=== PATIENT | female | born 1935 | race Caucasian/White ===

== ENCOUNTER 2018-07-23 15:10 | Emergency (ER) | payer MEDICARE, BC ==
[2018-07-23] MEDS ORDERED: Nitroglycerin 0.4 MG Tab.SL SL ONE (15:20)
--- NOTE | 2018-07-23 15:25 | EDM.PDOC ---
ED HPI GENERAL MEDICAL PROBLEM - General Stated Complaint: CHEST PAIN Time Seen by Provider: 07/23/18 15:10 Source of Information: Reports: Patient History Limitations: Reports: No Limitations - History of Present Illness INITIAL COMMENTS - FREE TEXT/NARRATIVE: Patient presents with tightness across lower to mid-sternal area that started about 45 minutes ago. She took 3 nitro without much help but doesn't think they stayed under her tongue. She says the pain was as high as 9 but is now about 4. She has angina occasionally, which is why she carries her nitro, but doesn't think she's ever had it this bad before. She denies pain in neck, arm, jaw, shoulders or arms. Middle Chest Pain Score (Numeric/FACES): 4 - Related Data Allergies Allergy/AdvReac Type Severity Reaction Status Date / Time No Known Allergies Allergy Verified 07/23/18 15:32 Home Meds: Home Meds Ascorbic Acid [Vitamin C] 500 mg PO DAILY 06/20/13 [History] Aspirin 325 mg PO DAILY 06/20/13 [History] Calcium Carbonate/Vitamin D3 [Calcium 500 + Vit D Caplet] 1 tab PO DAILY [History] Multivitamins [Tab-A-Parminder] 1 each PO DAILY 06/20/13 [History] Polyethylene Glycol 3350 [MiraLAX] 17 gm PO DAILY 06/20/13 [History] atorvaSTATin [Lipitor] 40 mg PO BEDTIME 06/20/13 [History] levETIRAcetam [Levetiracetam] 750 mg PO BID 06/20/13 [History] Furosemide 20 mg PO ASDIRECTED 09/19/15 [History] Isosorbide Mononitrate [Imdur] 30 mg PO DAILY #60 tab.er 09/20/15 [Rx] Nitroglycerin 0.4 mg SL ASDIRECTED PRN #1 bottle 09/20/15 [Rx] Lysine HCl [l-Lysine] 500 mg PO BID PRN 06/18/16 [History] Potassium Chloride 10 meq PO ASDIRECTED 06/18/16 [History] Ascorbic Acid [Vitamin C] 500 mg PO DAILY 07/23/18 [History] Past Medical History HEENT History: Reports: Cataract, Impaired Vision Cardiovascular History: Reports: SOB on Exertion Respiratory History: Reports: Other (See Below) Other Respiratory History: CPAP use Gastrointestinal History: Reports: Chronic Constipation 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 skin cancer removed from R cheek recently - Infectious Disease History Infectious Disease History: Reports: Chicken Pox - Past Surgical History HEENT Surgical History: Reports: Cataract Surgery Female Surgical History: Reports: Section Endocrine Surgical History: Reports: None Musculoskeletal Surgical History: Reports: Hip Replacement, Knee Replacement Social & Family History - Family History Family Medical History: Unobtainable HEENT: Reports: None Cardiac: Reports: Bypass, CAD Other Cardiac Family History: father of stroke, sister with heart disease, sister with hyperlipidemia Respiratory: Reports: None GI: Reports: None : Reports: None OBGYN: Reports: None Musculoskeletal: Reports: None Neurological: Reports: None Psychiatric: Reports: None Endocrine/Metabolic: Reports: None Hematologic: Reports: None Immunologic: Reports: None Dermatologic: Reports: None Oncologic: Reports: Other (See Below) - Caffeine Use Caffeine Use: Reports: Soda ED ROS GENERAL - Review of Systems Review Of Systems: See Below Constitutional: Denies: Fever, Weakness HEENT: Denies: Ear Pain, Throat Pain, Vision Change Respiratory: Reports: Shortness of Breath. Denies: Cough Cardiovascular: Reports: Chest Pain. Denies: Lightheadedness, Syncope GI/Abdominal: Reports: Constipation (chronic). Denies: Abdominal Pain, Diarrhea , Nausea, Vomiting : Denies: Dysuria, Flank Pain Musculoskeletal: Denies: Neck Pain, Shoulder Pain, Arm Pain, Back Pain, Hand Pain Skin: Denies: Cyanosis, Jaundice, Mottled, Pallor, Diaphoresis Neurological: Denies: Confusion, Dizziness, Headache, Seizure, Syncope, Trouble Speaking, Weakness Psychiatric: Denies: Agitation, Anxiety, Confusion ED EXAM, GENERAL - Physical Exam Exam: See Below Exam Limited By: No Limitations General Appearance: Alert, WD/WN, No Apparent Distress Eye Exam: Bilateral Eye: EOMI, Normal Inspection, PERRL Ears: Normal External Exam, Hearing Grossly Normal Nose: Normal Inspection, No Blood Throat/Mouth: Normal Inspection, Normal Lips, Normal Voice, No Airway Compromise Head: Atraumatic, Normocephalic Neck: Normal Inspection, Full Range of Motion Respiratory/Chest: No Respiratory Distress, Lungs Clear, Normal Breath Sounds, No Accessory Muscle Use Cardiovascular: Regular Rate, Rhythm, No Murmur GI/Abdominal: Normal Bowel Sounds, Soft, Non-Tender, No Organomegaly, No Distention Back Exam: Normal Inspection. No: CVA Tenderness (L), CVA Tenderness (R) Extremities: Normal Inspection, Normal Range of Motion Neurological: Alert, Oriented, Normal Cognition, No Motor/Sensory Deficits Psychiatric: Normal Affect, Normal Mood Skin Exam: Warm, Dry, Intact, Normal Color, No Rash Course - Vital Signs Last Recorded V/S: Last Vital Signs Temp 98.6 F 07/23/18 15:16 Pulse 66 07/23/18 20:20 Resp 20 07/23/18 20:20 BP 150/61 H 07/23/18 20:20 Pulse Ox 96 07/23/18 20:20 - Orders/Labs/Meds Labs: Laboratory Tests 07/23/18 07/23/18 07/23/18 Range/Units 15:20 15:20 19:30 WBC 6.32 (5.00-10.00) 10^3/uL RBC 4.47 (3.80-5.50) 10^6/uL Hgb 13.8 (12.0-16.0) g/dL Hct 42.1 (37.0-47.0) % MCV 94.2 H (82.0-92.0) fL MCH 30.9 (27.0-31.0) pg MCHC 32.8 (32.0-36.0) g/dL RDW 13.2 (11.5-14.5) % Plt Count 169 (150-400) 10^3/uL MPV 9.9 (7.4-10.4) fL Immature Gran % (Auto) 0.0 (0.0-5.0) % Neut % (Auto) 74.8 H (50.0-70.0) % Lymph % (Auto) 12.3 L (20.0-40.0) % [place] % (Auto) 8.7 H (2.0-8.0) % Eos % (Auto) 3.6 H (1.0-3.0) % Baso % (Auto) 0.6 (0.0-1.0) % Immature Gran # (Auto) 0.00 (0.00-0.50) 10^3/uL Neut # (Auto) 4.72 (2.50-7.00) 10^3/uL Lymph # (Auto) 0.78 L (1.00-4.00) 10^3/uL [place] # (Auto) 0.55 (0.10-0.80) 10^3/uL Eos # (Auto) 0.23 (0.10-0.30) 10^3/uL Baso # (Auto) 0.04 (0.00-0.10) 10^3/uL Sodium 144 (136-145) mmol/L Potassium 4.2 (3.3-5.3) mmol/L Chloride 105 (98-115) mmol/L Carbon Dioxide 30.6 (21.0-32.0) mmol/L Anion Gap 12.6 (5-15) mmol/L BUN 23 (6-25) mg/dL Creatinine 0.99 (0.51-1.17) mg/dL Est Cr Clr Drug Dosing 32.10 mL/min Estimated GFR (MDRD) 53 mL/min Glucose 99 (75 - 99) mg/dL Calcium 9.6 (8.7-10.3) mg/dL Total Bilirubin 0.5 (0.2-1.0) mg/dL AST 33 (15-37) U/L ALT 36 (12-78) U/L Alkaline Phosphatase 129 H (46-116) IU/L Troponin I 0.04 0.04 (0.00-0.070) ng/mL Total Protein 6.9 (6.4-8.2) g/dL Albumin 3.56 (3.00-4.80) g/dL Meds: Medications Discontinued Medications Generic Name Dose Route Start Last Admin Trade Name Freq PRN Reason Stop Dose Admin Aspirin 324 mg 07/23/18 15:51 07/23/18 15:59 Aspirin PO 07/23/18 15:52 324 mg ONETIME ONE Administration Nitroglycerin 0.4 mg 07/23/18 15:20 07/23/18 15:30 Nitrostat SL 07/23/18 15:21 0.4 mg ONETIME ONE Administration - Re-Assessments/Exams Free Text/Narrative Re-Assessment/Exam: 07/23/18 15:47 Patient states chest tightness/pain down to 1 or 2 after nitro dose and now it is gone after starting oxygen at 2 liters via nc. She tells me she uses oxygen at home when she is sitting but doesn't use it when she walks around because it is inconvenient. She admits she usually feels very short of breath with walking but usually doesn't have the pain or tightness like today. EKG shows NSR with no ST changes. 07/23/18 16:31 Trop is 0.4. Patient is asymptomatic and stable. Discussed findings and plan with patient. Will recheck trop at 4 hours and discharge to home if in normal range and she continues to feel well. Follow up with PCP in two days. Departure - Departure Time of Disposition: 20:06 Disposition: Home, Self-Care 01 Condition: Good Clinical Impression: Stable angina Dyspnea Qualifiers: Dyspnea type: dyspnea on exertion Qualified Code(s): R06.09 - Other forms of dyspnea Referrals: Jerson Ortiz PSYCHOLOGY PROFESSOR [Primary Care Provider] - Forms: ED Department Discharge Additional Instructions: 1. Continue your medications as directed, including the nitro if needed. 2. Follow up with your PCP in two days for recheck. 3. Return to ER if worsening.
[2018-07-23] MEDS ORDERED: Aspirin 81 MG Tab.Chew PO ONE (15:51)
[2018-07-23 15:59] LABS: ANION GAP 12.6 mmol/L (5-15)
--- NOTE | 2018-07-23 16:01 | CR ---
[id number] RAD/RAD Chest PA or AP 1V EXAM: RAD Chest PA or AP 1V INDICATION: CHEST PAIN. COMPARISON: None. DISCUSSION: Cardiomediastinal silhouette is stable in size and contour. No infiltrate, effusion, or pneumothorax. Pulmonary vascular congestion. Small left pleural effusion. IMPRESSION: Pulmonary vascular congestion the setting of cardiomegaly. Scar Ugalde DO 07/23/18 1600 Thank you for allowing us to participate in the care of your patient.
[2018-07-23 20:41] VITALS: BP 150/61
== END 2018-07-23 20:20 | disposition home or self-care (01) ==
LOC: KA.ED 15:10
DX: I20.8 Other forms of angina pectoris (principal); R06.09 Other forms of dyspnea; Z79.899 Other long term (current) drug therapy
CPT/HCPCS: 71045; 80053; 84484; 85025; 99285; A9270; 99284

== ENCOUNTER 2019-01-11 20:41 | Observation (INO) | payer MEDICARE, BC ==
[2019-01-11] MEDS ORDERED: HYDROmorphone 1 MG/ML Syringe IVPUSH ONE (21:09)
[2019-01-11] MEDS ORDERED: Ondansetron 4 MG/2 ML SDV IVPUSH ONE (21:09)
--- NOTE | 2019-01-11 21:11 | EDM.PDOC ---
ED HPI GENERAL MEDICAL PROBLEM - General Chief Complaint: General Stated Complaint: left groin pain radiates to left knee Time Seen by Provider: 01/11/19 20:50 Source of Information: Reports: Patient History Limitations: Reports: No Limitations - History of Present Illness INITIAL COMMENTS - FREE TEXT/NARRATIVE: 83 YO WF presents to ER complaining of left hip/groin pain. Pt reports left groin pain that began 3-4 days ago without any known injury. Pt reports tonight she was standing in her garage and turned and developed severe left hip and groin pain prompting EMS transfer to ER. Pt denies any fall, or known hip problems. 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 Duration: Day(s): (4) Location: Reports: Pelvis, Lower Extremity, Left Quality: Reports: Ache Severity: Severe Improves with: Reports: Rest Worsens with: Reports: Movement Context: Reports: Activity Associated Symptoms: Reports: No Other Symptoms Left Groin Pain Score (Numeric/FACES): 10 - Related Data Allergies Allergy/AdvReac Type Severity Reaction Status Date / Time No Known Allergies Allergy Verified 01/11/19 20:45 Home Meds: Home Meds Ascorbic Acid [Vitamin C] 500 mg PO DAILY 06/20/13 [History] Aspirin 325 mg PO DAILY 06/20/13 [History] Calcium Carbonate/Vitamin D3 [Calcium 500 + Vit D Caplet] 1 tab PO DAILY [History] Multivitamins [Tab-A-Parminder] 1 each PO DAILY 06/20/13 [History] Polyethylene Glycol 3350 [MiraLAX] 17 gm PO DAILY 06/20/13 [History] atorvaSTATin [Lipitor] 40 mg PO BEDTIME 06/20/13 [History] levETIRAcetam [Levetiracetam] 750 mg PO BID 06/20/13 [History] Furosemide 20 mg PO ASDIRECTED 09/19/15 [History] Isosorbide Mononitrate [Imdur] 30 mg PO DAILY #60 tab.er 09/20/15 [Rx] Nitroglycerin 0.4 mg SL ASDIRECTED PRN #1 bottle 09/20/15 [Rx] Lysine HCl [l-Lysine] 500 mg PO BID PRN 06/18/16 [History] Potassium Chloride 10 meq PO ASDIRECTED 06/18/16 [History] Ascorbic Acid [Vitamin C] 500 mg PO DAILY 07/23/18 [History] Past Medical History HEENT History: Reports: Cataract, Impaired Vision Cardiovascular History: Reports: SOB on Exertion Respiratory History: Reports: Other (See Below) Other Respiratory History: CPAP use Gastrointestinal History: Reports: Chronic Constipation 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 skin cancer removed from R cheek recently - Infectious Disease History Infectious Disease History: Reports: Chicken Pox - Past Surgical History HEENT Surgical History: Reports: Cataract Surgery Female Surgical History: Reports: Section Endocrine Surgical History: Reports: None Musculoskeletal Surgical History: Reports: Hip Replacement, Knee Replacement Social & Family History - Family History Family Medical History: Unobtainable HEENT: Reports: None Cardiac: Reports: Bypass, CAD Other Cardiac Family History: father of stroke, sister with heart disease, sister with hyperlipidemia Respiratory: Reports: None GI: Reports: None : Reports: None OBGYN: Reports: None Musculoskeletal: Reports: None Neurological: Reports: None Psychiatric: Reports: None Endocrine/Metabolic: Reports: None Hematologic: Reports: None Immunologic: Reports: None Dermatologic: Reports: None Oncologic: Reports: Other (See Below) - Caffeine Use Caffeine Use: Reports: Soda ED ROS GENERAL - Review of Systems Review Of Systems: See Below Constitutional: Reports: No Symptoms HEENT: Reports: No Symptoms Respiratory: Reports: No Symptoms Cardiovascular: Reports: No Symptoms Endocrine: Reports: No Symptoms GI/Abdominal: Reports: No Symptoms : Reports: No Symptoms Musculoskeletal: Reports: Leg Pain Skin: Reports: No Symptoms Neurological: Reports: No Symptoms Psychiatric: Reports: No Symptoms Hematologic/Lymphatic: Reports: No Symptoms Immunologic: Reports: No Symptoms ED EXAM, GENERAL - Physical Exam Exam: See Below Exam Limited By: No Limitations General Appearance: Alert, WD/WN, No Apparent Distress Head: Atraumatic, Normocephalic Neck: Normal Inspection, Supple, Non-Tender, Full Range of Motion Respiratory/Chest: No Respiratory Distress, Lungs Clear, Normal Breath Sounds, No Accessory Muscle Use, Chest Non-Tender Cardiovascular: Normal Peripheral Pulses, Regular Rate, Rhythm, No Edema, No Gallop, No JVD, No Murmur, No Rub GI/Abdominal: Normal Bowel Sounds, Soft, Non-Tender, No Organomegaly, No Distention, No Abnormal Bruit, No Mass Back Exam: Normal Inspection, Full Range of Motion. No: CVA Tenderness (L), CVA Tenderness (R), Decreased Range of Motion, Paraspinal Tenderness Extremities: No Pedal Edema, Normal Capillary Refill, Leg Pain, Other (left hip pain on deep palpation; pain on external rotation; pain on hip flexion) Neurological: Alert, Oriented, CN II-XII Intact, Normal Cognition, Normal Gait, Normal Reflexes, No Motor/Sensory Deficits Psychiatric: Normal Affect, Normal Mood Skin Exam: Warm, Dry, Intact, Normal Color, No Rash Lymphatic: No Adenopathy Course - Vital Signs Last Recorded V/S: Last Vital Signs Temp 37.2 C 01/11/19 20:47 Pulse 70 01/11/19 20:47 Resp 24 H 01/11/19 20:47 BP 170/54 H 01/11/19 20:47 Pulse Ox 95 01/11/19 20:47 - Orders/Labs/Meds Orders: Active Orders 24 hr Category Date Time Status Peripheral IV Care [RC] . DIRECTED Care 01/11/19 21:09 Active Hip Min 2V or 3V w Pelvis Lt [CR] Stat Exams 01/11/19 21:08 Ordered Ketorolac [Toradol] Med 01/11/19 22:05 Once 30 mg IVPUSH ONETIME ONE LORazepam [Ativan] Med 01/11/19 22:05 Once 1 mg IVPUSH ONETIME ONE Sodium Chloride 0.9% [Saline Flush] Med 01/11/19 21:08 Active 10 ml FLUSH Q8HR PRN Peripheral IV Insertion Adult [OM.PC] Routine Oth 01/11/19 21:08 Ordered Medication Orders Sodium Chloride (Saline Flush) 10 ml FLUSH Q8HR PRN PRN Reason: keep vein open Last Admin: 01/11/19 21:29 Dose: 10 ml Meds: Medications Generic Name Dose Route Start Last Admin Trade Name Freq PRN Reason Stop Dose Admin Sodium Chloride 10 ml 01/11/19 21:08 01/11/19 21:29 Saline Flush FLUSH 10 ml Q8HR PRN Administration keep vein open Discontinued Medications Generic Name Dose Route Start Last Admin Trade Name Akhil PRN Reason Stop Dose Admin Hydromorphone HCl 0.5 mg 01/11/19 21:09 01/11/19 21:28 Dilaudid IVPUSH 01/11/19 21:10 0.5 mg ONETIME ONE Administration Ondansetron HCl 4 mg 01/11/19 21:09 01/11/19 21:26 Zofran IVPUSH 01/11/19 21:10 4 mg ONETIME ONE Administration - Radiology Interpretation Free Text/Narrative:: left hip- NAD; DJD pelvis- NAD - Re-Assessments/Exams Free Text/Narrative Re-Assessment/Exam: 01/11/19 22:07 Pt still with discomfort. Pt concerned about going home since she lives alone and is unsure she'll be safe to transfer on her own. Discussed case with Shelly PAZ who will admit for 23 hour obs and get PT consult in am. Departure - Departure Time of Disposition: 22:08 Disposition: Refer to Observation Condition: Fair Clinical Impression: Hip pain, left - Discharge Information Forms: ED Department Discharge - My Orders Last 24 Hours: My Active Orders 01/11/19 21:08 Hip Min 2V or 3V w Pelvis Lt [CR] Stat Sodium Chloride 0.9% [Saline Flush] 10 ml FLUSH Q8HR PRN Peripheral IV Insertion Adult [OM.PC] Routine 01/11/19 21:09 Peripheral IV Care [RC] . DIRECTED 01/11/19 22:05 Ketorolac [Toradol] 30 mg IVPUSH ONETIME ONE LORazepam [Ativan] 1 mg IVPUSH ONETIME ONE - Assessment/Plan Last 24 Hours: My Active Orders 01/11/19 21:08 Hip Min 2V or 3V w Pelvis Lt [CR] Stat Sodium Chloride 0.9% [Saline Flush] 10 ml FLUSH Q8HR PRN Peripheral IV Insertion Adult [OM.PC] Routine 01/11/19 21:09 Peripheral IV Care [RC] . DIRECTED 01/11/19 22:05 Ketorolac [Toradol] 30 mg IVPUSH ONETIME ONE LORazepam [Ativan] 1 mg IVPUSH ONETIME ONE Assessment:: 1. left hip pain- osteoarthritis Plan: 1. admit for 23 hour obs- Shelly PAZ 2. pain medication per Shelly Martinez 3. PT to evaluate and treat 4. supportive care
[2019-01-11] MEDS: Sodium Chloride 0.9% 10 ML Syringe FLUSH PRN ×2 (21:29→22:18)
[2019-01-11] MEDS ORDERED: LORazepam 2 MG/ML SDV IVPUSH ONE (22:05)
[2019-01-11] MEDS ORDERED: Ketorolac 30 MG/ML SDV IVPUSH ONE (22:05)
[2019-01-12] MEDS ORDERED: levETIRAcetam 250 MG Tab PO ONE (01:04)
[2019-01-12] MEDS ORDERED: Sodium Chloride 0.9% 10 ML Syringe FLUSH PRN (01:10)
[2019-01-12] MEDS ORDERED: levETIRAcetam 500 MG Tab PO ONE (01:45)
[2019-01-12] MEDS: Albuterol/Ipratropium 3.0-0.5 MG/3 ML Neb Soln INH SCH ×3 (07:04→17:59)
[2019-01-12] MEDS: Budesonide 0.5 MG/2 ML Neb Susp INH SCH ×2 (08:38→21:17)
[2019-01-12] MEDS: Polyethylene Glycol 3350 Powder 17 GM Packet PO SCH (08:41)
[2019-01-12] MEDS: Metoprolol Succinate 25 MG Tab.ER PO SCH (08:41)
[2019-01-12] MEDS: Calcium Citrate/Vitamin D3 315 MG-250 Unit Tab PO SCH (08:41)
[2019-01-12] MEDS: Aspirin 81 MG Tab.EC PO SCH (08:42)
[2019-01-12] MEDS: levETIRAcetam 500 MG Tab PO SCH ×2 (08:42→21:16)
[2019-01-12] MEDS: Isosorbide Mononitrate 30 MG Tab.ER PO SCH (08:42)
[2019-01-12] MEDS: Multivitamins with Minerals/Iron/Folic Acid/Lycopene Tab PO SCH (08:42)
[2019-01-12] MEDS ORDERED: levETIRAcetam 250 MG Tab PO SCH (09:00)
[2019-01-12] MEDS ORDERED: levETIRAcetam 500 MG Tab PO SCH (09:00)
--- NOTE | 2019-01-12 11:33 | PCM.HP.2 ---
H&P History of Present Illness - General Date of Service: 01/12/19 Admit Problem/Dx: Admission Diagnosis/Problem Admission Diagnosis/Problem Hip pain Source of Information: Patient, Old Records, RN History Limitations: Reports: No Limitations - History of Present Illness Initial Comments - Free Text/Narative: history of present Illness Adele is an 83 YO morbid obese female admitted through the ED into obs status Due to left groin and left hip pain that begain ~4 days ago without any known injury. Patient reported that she was standing in her garage and turned and developed severe left hip and groin pain prompting EMS transfer to ER. 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 Left Groin Pain Score (Numeric/FACES): 5 - Related Data Allergies/Adverse Reactions: Allergies Allergy/AdvReac Type Severity Reaction Status Date / Time No Known Allergies Allergy Verified 01/11/19 20:45 Home Medications: Home Meds Calcium Carbonate/Vitamin D3 [Calcium 500 + Vit D Caplet] 1 tab PO DAILY [History] Multivitamins [Tab-A-Parminder] 1 each PO DAILY 06/20/13 [History] Polyethylene Glycol 3350 [MiraLAX] 17 gm PO DAILY 06/20/13 [History] levETIRAcetam [Levetiracetam] 750 mg PO BID 06/20/13 [History] Furosemide 20 mg PO MOWEFR 09/19/15 [History] Isosorbide Mononitrate [Imdur] 30 mg PO DAILY #60 tab.er 09/20/15 [Rx] Nitroglycerin 0.4 mg SL ASDIRECTED PRN #1 bottle 09/20/15 [Rx] Lysine HCl [l-Lysine] 500 mg PO BID PRN 06/18/16 [History] Potassium Chloride 10 meq PO MOWEFR 06/18/16 [History] Ascorbic Acid [Vitamin C] 500 mg PO DAILY 07/23/18 [History] Metoprolol Succinate [Toprol Xl] 25 mg PO DAILY 01/11/19 [History] Nystatin 1 applic TOP TID 01/11/19 [History] Nystatin [Nyamyc] 1 applic TOP BID 01/11/19 [History] Acetaminophen [Tylenol Arthritis Pain] 650 mg PO Q8H #180 tab.er 01/13/19 [Rx] Albuterol/Ipratropium [DuoNeb 3.0-0.5 MG/3 ML] 3 ml INH TID #0 01/13/19 [Rx] Aspirin [Lo-Dose Aspirin EC] 81 mg PO DAILY #0 01/13/19 [Rx] Budesonide [Pulmicort] 2 ml INH BID #0 01/13/19 [Rx] Lidocaine 5% [Lidoderm 5%] 700 mg TOP Q24H #30 patch 01/13/19 [Rx] atorvaSTATin [Lipitor] 40 mg PO BEDTIME #0 01/13/19 [Rx] Past Medical History HEENT History: Reports: Cataract, Impaired Vision Cardiovascular History: Reports: SOB on Exertion Respiratory History: Reports: Other (See Below) Other Respiratory History: CPAP use Gastrointestinal History: Reports: Chronic Constipation Genitourinary History: Reports: None [employer]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 skin cancer removed from R cheek recently - Infectious Disease History Infectious Disease History: Reports: Chicken Pox - Past Surgical History Head Surgeries/Procedures: Reports: None HEENT Surgical History: Reports: Cataract Surgery Female Surgical History: Reports: Section Endocrine Surgical History: Reports: None Musculoskeletal Surgical History: Reports: Hip Replacement, Knee Replacement Social & Family History - Family History Family Medical History: Unobtainable HEENT: Reports: None Cardiac: Reports: Bypass, CAD Other Cardiac Family History: father of stroke, sister with heart disease, sister with hyperlipidemia Respiratory: Reports: None GI: Reports: None : Reports: None OBGYN: Reports: None Musculoskeletal: Reports: None Neurological: Reports: None Psychiatric: Reports: None Endocrine/Metabolic: Reports: None Hematologic: Reports: None Immunologic: Reports: None Dermatologic: Reports: None Oncologic: Reports: Other (See Below) - Tobacco Use Smoking Status *Q: Former Smoker Used Tobacco, but Quit: No Month/Year Tobacco Last Used: 1969 Tobacco Use Comment: patient quit 50 years ago Second Hand Smoke Exposure: No - Caffeine Use Caffeine Use: Reports: Coffee, Soda - Recreational Drug Use Recreational Drug Use: No H&P Review of Systems - Review of Systems: Review Of Systems: See Below General: Reports: No Symptoms HEENT: Reports: No Symptoms Pulmonary: Reports: No Symptoms Cardiovascular: Reports: No Symptoms Gastrointestinal: Reports: No Symptoms Genitourinary: Reports: No Symptoms Musculoskeletal: Reports: Joint Pain, Other (left hip pain) Skin: Reports: No Symptoms Psychiatric: Reports: No Symptoms Neurological: Reports: Difficulty Walking Hematologic/Lymphatic: Reports: No Symptoms Immunologic: Reports: No Symptoms Exam - Exam Exam: See Below - Vital Signs Vital Signs: Last Vital Signs Temp 97.7 F 01/12/19 11:00 Pulse 64 01/12/19 11:00 Resp 16 01/12/19 11:00 BP 108/52 L 01/12/19 11:00 Pulse Ox 92 L 01/12/19 11:00 Weight: 247 lb 2 oz - Exam Quality Assessment: No: Supplemental Oxygen General: Alert, Oriented, 4 Neck: Supple Lungs: Clear to Auscultation, Normal Respiratory Effort Cardiovascular: Regular Rate, Regular Rhythm GI/Abdominal Exam: No Distention, Other (large body habitus) (Female) Exam: Deferred Back Exam: No: CVA Tenderness (L) Extremities: Pedal Edema, Other (left Hip. Positive Fabers, pain on abduction left hip, referred to left groin, neg SLR) Skin: Warm, Dry, Intact Neurological: Cranial Nerves Intact, Reflexes Equal Bilateral Neuro Extensive - Mental Status: Alert, Oriented x3, Normal Mood/Affect, Normal Cognition Neuro Extensive - Motor, Sensory, Reflexes: CN II-XII Intact, Normal Gait, Normal Reflexes Psychiatric: Alert, Normal Affect, Normal Mood Problem List Initiated/Reviewed/Updated: Yes Orders Last 24hrs: Active Orders 24 hr Category Date Time Status Patient Status [ADT] Routine ADT 01/12/19 01:03 Active Oxygen Therapy [RC] PRN Care 01/12/19 01:03 Active VTE/DVT Education [RC] PER UNIT ROUTINE Care 01/12/19 01:03 Active Vital Signs [RC] 0300,0700,1100,1500,1900,2300 Care 01/12/19 01:03 Active Heart Healthy Diet [DIET] Diet 01/12/19 Breakfast Active Albuterol/Ipratropium [DuoNeb 3.0-0.5 MG/3 ML] Med 01/12/19 07:00 Active 3 ml INH TIDRT Aspirin [Halfprin] Med 01/12/19 09:00 Active 81 mg PO DAILY Budesonide [Pulmicort] Med 01/12/19 08:00 Active 0.5 mg INH BIDRT Calcium Citrate/Vitamin D3 [Calcium Citrate + D] Med 01/12/19 09:00 Active 2 tab PO DAILY FA/Lycopene/Lut/MV,Ca,Iron,Min [Centrum] Med 01/12/19 09:00 Active 1 tab PO DAILY Furosemide [Lasix] Med 01/13/19 08:00 Active 20 mg PO MoWeFr@0800 Isosorbide Mononitrate [Imdur] Med 01/12/19 09:00 Active 30 mg PO DAILY Metoprolol Succinate [Toprol XL] Med 01/12/19 09:00 Active 25 mg PO DAILY Polyethylene Glycol 3350 [MiraLAX] Med 01/12/19 09:00 Active 17 gm PO DAILY Potassium Chloride [Klor-Con 10] Med 01/13/19 08:00 Active 10 meq PO MoWeFr@0800 Sodium Chloride 0.9% [Saline Flush] Med 01/11/19 21:08 Active 10 ml FLUSH Q8HR PRN atorvaSTATin [Lipitor] Med 01/12/19 21:00 Active 40 mg PO BEDTIME levETIRAcetam [Keppra] Med 01/12/19 09:00 Active 750 mg PO BID Saline Lock Insert [OM.PC] Routine Oth 01/12/19 01:10 Ordered Resuscitation Status Routine Resus Stat 01/12/19 01:03 Ordered Medication Orders Albuterol/Ipratropium (Duoneb 3.0-0.5 Mg/3 Ml) 3 ml INH TIDRT [facility] Last Admin: 01/12/19 07:04 Dose: 3 ml Aspirin (Halfprin) 81 mg PO DAILY [facility] Last Admin: 01/12/19 08:42 Dose: 81 mg Atorvastatin Calcium (Lipitor) 40 mg PO BEDTIME MAGED Budesonide (Pulmicort) 0.5 mg INH BIDRT [facility] Last Admin: 01/12/19 08:38 Dose: 0.5 mg Calcium Citrate (Calcium Citrate + D) 2 tab PO DAILY [facility] Last Admin: 01/12/19 08:41 Dose: 2 tab Furosemide (Lasix) 20 mg PO MoWeFr@0800 [facility] Isosorbide Mononitrate (Imdur) 30 mg PO DAILY [facility] Last Admin: 01/12/19 08:42 Dose: 30 mg Levetiracetam (Keppra) 750 mg PO BID [facility] Last Admin: 01/12/19 08:42 Dose: 750 mg Metoprolol Succinate (Toprol Xl) 25 mg PO DAILY [facility] Last Admin: 01/12/19 08:41 Dose: 25 mg Multivitamins/Minerals (Centrum) 1 tab PO DAILY [facility] Last Admin: 01/12/19 08:42 Dose: 1 tab Polyethylene Glycol (Miralax) 17 gm PO DAILY [facility] Last Admin: 01/12/19 08:41 Dose: 17 gm Potassium Chloride (Klor-Con 10) 10 meq PO MoWeFr@0800 [facility] Sodium Chloride (Saline Flush) 10 ml FLUSH Q8HR PRN PRN Reason: keep vein open Last Admin: 01/11/19 22:18 Dose: 10 ml Admin: 01/11/19 21:29 Dose: 10 ml Assessment/Plan Comment:: history of present Illness Adele is an 83 YO morbid obese female admitted through the ED into obs status Due to left groin and left hip pain that begain ~4 days ago without any known injury. Patient reported that she was standing in her garage and turned and developed severe left hip and groin pain prompting EMS transfer to ER. 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 She is morbidly obese Primary hospital problems Osteoarthritis, left hip Constipation Obesity, morbid, confounding Overall plan Lidoderm patch Increased Tylenol scheduled PT consultation to assess functional status Likely may need assisted care - Mortality Measure Prognosis:: Good
[2019-01-12] MEDS: Acetaminophen 650 MG Tab.ER PO SCH ×2 (14:14→21:17)
[2019-01-12] MEDS ORDERED: Lidocaine 5% 700 MG Patch TOP SCH (18:00)
[2019-01-12] MEDS ORDERED: atorvaSTATin 40 MG Tab PO SCH (21:00)
[2019-01-13] MEDS: Acetaminophen 650 MG Tab.ER PO SCH (05:49)
[2019-01-13] MEDS: Albuterol/Ipratropium 3.0-0.5 MG/3 ML Neb Soln INH SCH (07:11)
[2019-01-13] MEDS: Budesonide 0.5 MG/2 ML Neb Susp INH SCH (07:49)
[2019-01-13] MEDS ORDERED: Potassium Chloride 10 MEQ Tab.ER PO SCH (08:00)
[2019-01-13] MEDS ORDERED: Furosemide 20 MG Tab PO SCH (08:00)
[2019-01-13] MEDS: levETIRAcetam 500 MG Tab PO SCH (09:31)
[2019-01-13] MEDS: Aspirin 81 MG Tab.EC PO SCH (09:31)
[2019-01-13] MEDS: Metoprolol Succinate 25 MG Tab.ER PO SCH (09:31)
[2019-01-13] MEDS: Polyethylene Glycol 3350 Powder 17 GM Packet PO SCH (09:31)
[2019-01-13] MEDS: Multivitamins with Minerals/Iron/Folic Acid/Lycopene Tab PO SCH (09:32)
[2019-01-13] MEDS: Calcium Citrate/Vitamin D3 315 MG-250 Unit Tab PO SCH (09:32)
[2019-01-13] MEDS: Isosorbide Mononitrate 30 MG Tab.ER PO SCH (09:32)
[2019-01-13 11:52] VITALS: BP 136/68
--- NOTE | 2019-01-18 11:07 | PCM.DCSUM1 ---
Discharge Summary - Hospital Course Diagnosis: Stroke: No - Discharge Data Discharge Date: 01/13/19 Discharge Disposition: DC/Tfer to SNF 03 Condition: Fair - Patient Summary/Data Consults: Consultations 01/12/19 12:58 PT Evaluation and Treatment [CONS] Routine - Patient Instructions Diet: Heart Healthy Diet, Weight Loss Diet Activity: As Tolerated Driving: Do Not Drive Showering/Bathing: May Shower Notify Provider of: Increased Pain - Discharge Plan *PRESCRIPTION DRUG MONITORING PROGRAM REVIEWED*: Not Applicable *COPY OF PRESCRIPTION DRUG MONITORING REPORT IN PATIENT CHERYLE: Not Applicable Prescriptions/Med Rec: Acetaminophen [Tylenol Arthritis Pain] 650 mg PO Q8H #180 tab.er Lidocaine 5% [Lidoderm 5%] 700 mg TOP Q24H #30 patch Home Medications: Home Meds Calcium Carbonate/Vitamin D3 [Calcium 500 + Vit D Caplet] 1 tab PO DAILY [History] Multivitamins [Tab-A-Parminder] 1 each PO DAILY 06/20/13 [History] Polyethylene Glycol 3350 [MiraLAX] 17 gm PO DAILY 06/20/13 [History] levETIRAcetam [Levetiracetam] 750 mg PO BID 06/20/13 [History] Furosemide 20 mg PO MOWEFR 09/19/15 [History] Isosorbide Mononitrate [Imdur] 30 mg PO DAILY #60 tab.er 09/20/15 [Rx] Nitroglycerin 0.4 mg SL ASDIRECTED PRN #1 bottle 09/20/15 [Rx] Lysine HCl [l-Lysine] 500 mg PO BID PRN 06/18/16 [History] Potassium Chloride 10 meq PO MOWEFR 06/18/16 [History] Ascorbic Acid [Vitamin C] 500 mg PO DAILY 07/23/18 [History] Metoprolol Succinate [Toprol Xl] 25 mg PO DAILY 01/11/19 [History] Nystatin 1 applic TOP TID 01/11/19 [History] Nystatin [Nyamyc] 1 applic TOP BID 01/11/19 [History] Acetaminophen [Tylenol Arthritis Pain] 650 mg PO Q8H #180 tab.er 01/13/19 [Rx] Albuterol/Ipratropium [DuoNeb 3.0-0.5 MG/3 ML] 3 ml INH TID #0 01/13/19 [Rx] Aspirin [Lo-Dose Aspirin EC] 81 mg PO DAILY #0 01/13/19 [Rx] Budesonide [Pulmicort] 2 ml INH BID #0 01/13/19 [Rx] Lidocaine 5% [Lidoderm 5%] 700 mg TOP Q24H #30 patch 01/13/19 [Rx] atorvaSTATin [Lipitor] 40 mg PO BEDTIME #0 01/13/19 [Rx] - Discharge Summary/Plan Comment DC Time >30 min.: Yes Discharge Summary/Plan Comment: Final diagnosis Osteoarthritis, left hip, SI joint Constipation, improving Obesity, morbid, confounding History summary 83 YO morbid obese female admitted through the ED into obs status she called the ambulance due to not being able to get up due to significant left groin and left hip pain that began ~4 days prior to admission. Denied any recent fall or injury. Patient reported that she was standing in her garage and turned and developed severe left hip and groin pain prompting EMS transfer to ER. No known LEFT hip problems however does had hx of right ABRIL and bilateral TKA in the remote past. She is morbidly obese and is quite sedentary with very limited mobility over the past year or two. He has fallen multiple times in the past however not recently. Hospital course Went fairly well however she did need considerable assist with mobility/ ambulation and basic ADL. Hip x-ray showed mild to moderate osteoarthritis in her left hip. Lidoderm patch along with increase in Tylenol seemed to help. She never became febrile, vital signs non-concerning. Patient felt like like her pain is better controlled with pain patch. She required minimal assistance from PT to get out of bed <5% assistance. Ambulated around room with FWW and SBA no loss of balance. Medication changes/adjustments upon discharge Lidoderm patch Increase Tylenol to 650 every 6 hours scheduled Continue all other home medications Disposition Patient will be transferred to long-term care for PT and rehabilitation pt is DCing to SNF. Suggest PT/OT evaluations in order to assist in pain relief measures and regaining strength to return home. Suggest cognitive evaluation as well Consideratioins at follow-up May need SI joint injection/hip injection - General Info Functional Status: Reports: Pain Controlled (Pain fairly well controlled in her left hip), Ambulating (Ambulating but needs assistance) - Review of Systems General: Reports: Weakness Pulmonary: Reports: No Symptoms Cardiovascular: Reports: No Symptoms Gastrointestinal: Denies: Abdominal Pain, Constipation, Decreased Appetite Genitourinary: Reports: No Symptoms Musculoskeletal: Reports: Joint Pain (Left hip pain) Skin: Reports: No Symptoms Neurological: Reports: Pre-Existing Deficit, Difficulty Walking, Weakness, Gait Disturbance. Denies: Headache, Numbness, Paresthesia, Seizure (Histories of seizure), Tingling Psychiatric: Reports: Anxiety (Tearful on having to go into long-term care, concerned about pets) - Patient Data Vitals - Most Recent: Last Vital Signs Temp 97.1 F 01/13/19 11:00 Pulse 63 01/13/19 11:00 Resp 16 01/13/19 11:00 BP 136/68 01/13/19 11:00 Pulse Ox 94 L 01/13/19 11:00 Weight - Most Recent: 247 lb 2 oz Med Orders - Current: Current Medications Discontinued Medications Acetaminophen (Tylenol Arthritis Pain) 650 mg PO Q8H [facility] Last Admin: 01/13/19 05:49 Dose: 650 mg Albuterol/Ipratropium (Duoneb 3.0-0.5 Mg/3 Ml) 3 ml INH TIDRT [facility] Last Admin: 01/13/19 07:11 Dose: 3 ml Aspirin (Halfprin) 81 mg PO DAILY [facility] Last Admin: 01/13/19 09:31 Dose: 81 mg Atorvastatin Calcium (Lipitor) 40 mg PO BEDTIME [facility] Last Admin: 01/12/19 21:18 Dose: 40 mg Budesonide (Pulmicort) 0.5 mg INH BIDRT [facility] Last Admin: 01/13/19 07:49 Dose: 0.5 mg Calcium Citrate (Calcium Citrate + D) 2 tab PO DAILY [facility] Last Admin: 01/13/19 09:32 Dose: 2 tab Furosemide (Lasix) 20 mg PO MoWeFr@0800 [facility] Last Admin: 01/13/19 09:31 Dose: 20 mg Hydromorphone HCl (Dilaudid) 0.5 mg IVPUSH ONETIME ONE Stop: 01/11/19 21:10 Last Admin: 01/11/19 21:28 Dose: 0.5 mg Isosorbide Mononitrate (Imdur) 30 mg PO DAILY [facility] Last Admin: 01/13/19 09:32 Dose: 30 mg Ketorolac Tromethamine (Toradol) 30 mg IVPUSH ONETIME ONE Stop: 01/11/19 22:06 Last Admin: 01/11/19 22:13 Dose: 30 mg Levetiracetam (Keppra) 500 mg PO BID [facility] Levetiracetam (Keppra) 250 mg PO BID [facility] Levetiracetam (Keppra) 750 mg PO ONETIME ONE Stop: 01/12/19 01:46 Last Admin: 01/12/19 01:49 Dose: 750 mg Levetiracetam (Keppra) 750 mg PO BID [facility] Last Admin: 01/13/19 09:31 Dose: 750 mg Lidocaine (Lidoderm 5%) 700 mg TOP Q24H [facility] Last Admin: 01/12/19 17:54 Dose: 700 mg Lorazepam (Ativan) 1 mg IVPUSH ONETIME ONE Stop: 01/11/19 22:06 Last Admin: 01/11/19 22:13 Dose: 1 mg Metoprolol Succinate (Toprol Xl) 25 mg PO DAILY [facility] Last Admin: 01/13/19 09:31 Dose: 25 mg Miscellaneous Information (Remove Patch) 1 ea TRDERM DAILY@0600 [facility] Last Admin: 01/13/19 05:52 Dose: 1 ea Multivitamins/Minerals (Centrum) 1 tab PO DAILY [facility] Last Admin: 01/13/19 09:32 Dose: 1 tab Ondansetron HCl (Zofran) 4 mg IVPUSH ONETIME ONE Stop: 01/11/19 21:10 Last Admin: 01/11/19 21:26 Dose: 4 mg Polyethylene Glycol (Miralax) 17 gm PO DAILY [facility] Last Admin: 01/13/19 09:31 Dose: 17 gm Potassium Chloride (Klor-Con 10) 10 meq PO MoWeFr@0800 [facility] Last Admin: 01/13/19 09:31 Dose: 10 meq Sodium Chloride (Saline Flush) 10 ml FLUSH Q8HR PRN PRN Reason: keep vein open Last Admin: 01/11/19 22:18 Dose: 10 ml Sodium Chloride (Saline Flush) 10 ml FLUSH Q8HR PRN PRN Reason: keep vein open - Exam Quality Assessment: Denies: Supplemental Oxygen General: Reports: Alert, Oriented, Mild Distress (Tearful about long-term care placement, concerned about pets) Neck: Reports: Supple Lungs: Reports: Clear to Auscultation, Normal Respiratory Effort Cardiovascular: Reports: Regular Rate, Regular Rhythm GI/Abdominal Exam: Soft (Female) Exam: Deferred Back Exam: Denies: CVA Tenderness (L), CVA Tenderness (R) Extremities: Limited Range of Motion, Other (Left hip, positive Liliana's, negative SLR, limited abduction). No: Increased Warmth Neurological: Reports: No New Focal Deficit, Normal Speech, Normal Tone, Sensation Intact Psy/Mental Status: Reports: Alert, Anxious
== END 2019-01-13 12:10 ==
LOC: KA.ED 20:41 → KA.MS 22:19
PROVIDERS: ADMIT Physician Assistant Medical; ATTEND Nurse Practitioner Family
DX: M16.12 Unilateral primary osteoarthritis, left hip (principal); K59.00 Constipation, unspecified; I25.10 Atherosclerotic heart disease of native coronary artery without angina pectoris; M19.90 Unspecified osteoarthritis, unspecified site; E66.01 Morbid (severe) obesity due to excess calories; Z68.42 Body mass index [BMI] 45.0-49.9, adult; Z79.899 Other long term (current) drug therapy; Z87.891 Personal history of nicotine dependence; Z79.82 Long term (current) use of aspirin
CPT/HCPCS: 94640; 96374; 96375; 97035-GP; 97161-GP; 99283; 99285-25; A9270-GY; J1170; J1885; J2060; J2405; J7620-GY

== ENCOUNTER 2019-05-07 10:25 | Emergency (ER) | payer MEDICARE, BC ==
[2019-05-07] MEDS ORDERED: Aspirin 81 MG Tab.Chew PO ONE (10:31)
[2019-05-07] MEDS: Sodium Chloride 0.9% 10 ML Syringe FLUSH PRN ×2 (11:02→12:32)
--- NOTE | 2019-05-07 11:06 | CR ---
[id number] RAD/RAD Chest PA or AP 1V EXAM: RAD Chest PA or AP 1V INDICATION: CHEST PAIN, ASPIRATION. COMPARISON: July 23, 2018. DISCUSSION: Cardiomediastinal silhouette is enlarged but stable. No infiltrate, effusion, or pneumothorax. Pulmonary vascular congestion. Small left pleural effusion. Bibasilar subsegmental atelectasis and/or scarring IMPRESSION: Pulmonary vascular congestion in the setting of cardiomegaly. Scar Ugalde DO 05/07/19 [id number] Thank you for allowing us to participate in the care of your patient.
[2019-05-07 11:13] LABS: ANION GAP 12.5 mmol/L (5-15); CHLORIDE,CL 105 mmol/L (98-115); SODIUM,NA 143 mmol/L (136-145)
[2019-05-07] MEDS ORDERED: Furosemide 40 MG/4 ML VIAL IVPUSH ONE (12:16)
--- NOTE | 2019-05-07 12:41 | EDM.PDOC ---
ED HPI GENERAL MEDICAL PROBLEM - General Chief Complaint: Chest Pain Stated Complaint: CHEST PAIN Time Seen by Provider: 05/07/19 11:16 Source of Information: Reports: Patient History Limitations: Reports: No Limitations - History of Present Illness INITIAL COMMENTS - FREE TEXT/NARRATIVE: Patient is an 84-year-old female who presents to the emergency department this morning complaining of chest pain. Patient states at approximately 930 this morning, she developed midsternal chest pressure while at rest. States that she took a shower. Symptoms did not relieve. She decided to take nitroglycerin without relief. She took 2 more nitroglycerin and once again without relief. She decided to call 911. Patient states she's had similar symptoms previously, but they seemed to resolve on their own. Patient denies shortness of breath, fever, lower extremity edema, headache, syncope or near syncope, fall, long sedentary trips, or out of country travel. 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 (3) Middle Chest Pain Score (Numeric/FACES): 8 - Related Data Allergies Allergy/AdvReac Type Severity Reaction Status Date / Time No Known Allergies Allergy Verified 05/07/19 10:36 Home Meds: Home Meds Calcium Carbonate/Vitamin D3 [Calcium 500 + Vit D Caplet] 1 tab PO DAILY [History] Multivitamins [Tab-A-Parminder] 1 each PO DAILY 06/20/13 [History] Polyethylene Glycol 3350 [MiraLAX] 17 gm PO DAILY 06/20/13 [History] levETIRAcetam [Levetiracetam] 750 mg PO BID 06/20/13 [History] Furosemide 20 mg PO MOWEFR 09/19/15 [History] Isosorbide Mononitrate [Imdur] 30 mg PO DAILY #60 tab.er 09/20/15 [Rx] Nitroglycerin 0.4 mg SL ASDIRECTED PRN #1 bottle 09/20/15 [Rx] Lysine HCl [l-Lysine] 500 mg PO BID PRN 06/18/16 [History] Potassium Chloride 10 meq PO MOWEFR 06/18/16 [History] Ascorbic Acid [Vitamin C] 500 mg PO DAILY 07/23/18 [History] Metoprolol Succinate [Toprol Xl] 25 mg PO DAILY 01/11/19 [History] Nystatin 1 applic TOP TID 01/11/19 [History] Nystatin [Nyamyc] 1 applic TOP BID 01/11/19 [History] Acetaminophen [Tylenol Arthritis Pain] 650 mg PO Q8H #180 tab.er 01/13/19 [Rx] Albuterol/Ipratropium [DuoNeb 3.0-0.5 MG/3 ML] 3 ml INH TID #0 01/13/19 [Rx] Budesonide [Pulmicort] 2 ml INH BID #0 01/13/19 [Rx] atorvaSTATin [Lipitor] 40 mg PO BEDTIME #0 01/13/19 [Rx] Aspirin [Lo-Dose Aspirin EC] 81 mg PO BEDTIME 05/07/19 [History] Past Medical History HEENT History: Reports: Cataract, Impaired Vision Cardiovascular History: Reports: SOB on Exertion Respiratory History: Reports: Other (See Below) Other Respiratory History: CPAP use and home oxygen Gastrointestinal History: Reports: Chronic Constipation Genitourinary History: Reports: None [employer] History: Reports: Musculoskeletal History: Reports: Arthritis, Back Pain, Chronic Neurological History: Reports: CVA, Seizure Psychiatric History: Reports: None Endocrine/Metabolic History: Reports: Obesity/BMI 30+ Hematologic History: Reports: None Immunologic History: Reports: None Oncologic (Cancer) History: Reports: Other (See Below) Other Oncologic History: skin Dermatologic History: Reports: Cellulitis, Other (See Below) Other Dermatologic History: cellulitis to brunilda lower legs in past. skin cancer removed from R cheek - Infectious Disease History Infectious Disease History: Reports: Chicken Pox - Past Surgical History Head Surgeries/Procedures: Reports: None HEENT Surgical History: Reports: Cataract Surgery Cardiovascular Surgical History: Reports: Other (See Below) Other Cardiovascular Surgeries/Procedures: "went through my legs and went to my heart" Female Surgical History: Reports: Section Endocrine Surgical History: Reports: None Musculoskeletal Surgical History: Reports: Hip Replacement, Knee Replacement Social & Family History - Family History Family Medical History: Noncontributory HEENT: Reports: None Cardiac: Reports: Bypass, CAD Other Cardiac Family History: father of stroke, sister with heart disease, sister with hyperlipidemia Respiratory: Reports: None GI: Reports: None : Reports: None OBGYN: Reports: None Musculoskeletal: Reports: None Neurological: Reports: None Psychiatric: Reports: None Endocrine/Metabolic: Reports: None Hematologic: Reports: None Immunologic: Reports: None Dermatologic: Reports: None Oncologic: Reports: Other (See Below) - Tobacco Use Smoking Status *Q: Former Smoker Used Tobacco, but Quit: Yes Month/Year Tobacco Last Used: 1969 - Caffeine Use Caffeine Use: Reports: Soda - Recreational Drug Use Recreational Drug Use: No ED ROS GENERAL - Review of Systems Review Of Systems: Comprehensive ROS is negative, except as noted in HPI. Constitutional: Reports: No Symptoms HEENT: Reports: No Symptoms Respiratory: Reports: No Symptoms Cardiovascular: Reports: Chest Pain Endocrine: Reports: No Symptoms GI/Abdominal: Reports: No Symptoms : Reports: No Symptoms Musculoskeletal: Reports: No Symptoms Skin: Reports: No Symptoms Neurological: Reports: No Symptoms Psychiatric: Reports: No Symptoms Hematologic/Lymphatic: Reports: No Symptoms Immunologic: Reports: No Symptoms ED EXAM, GENERAL - Physical Exam Exam: See Below Exam Limited By: No Limitations General Appearance: Alert, WD/WN, No Apparent Distress Eye Exam: Bilateral Eye: Normal Inspection Nose: Normal Inspection, Normal Mucosa, No Blood Throat/Mouth: Normal Inspection, Normal Oropharynx, No Airway Compromise Head: Atraumatic, Normocephalic Neck: Normal Inspection, Supple, Non-Tender Respiratory/Chest: No Respiratory Distress, Lungs Clear, Rales (Bibasilar) Cardiovascular: Normal Peripheral Pulses, Regular Rate, Rhythm, Diastolic Murmur GI/Abdominal: Normal Bowel Sounds, Soft, Non-Tender, No Organomegaly, No Distention, No Abnormal Bruit, No Mass Back Exam: Normal Inspection. No: CVA Tenderness (L), CVA Tenderness (R) Extremities: Normal Inspection, Pedal Edema (2+) Neurological: Alert, Oriented, CN II-XII Intact, Normal Cognition Psychiatric: Normal Affect, Normal Mood Skin Exam: Warm, Dry, Intact, Normal Color, No Rash Course - Vital Signs Last Recorded V/S: Last Vital Signs Temp 98.1 F 05/07/19 12:55 Pulse 67 05/07/19 12:55 Resp 15 05/07/19 12:55 BP 119/47 L 05/07/19 12:55 Pulse Ox 97 05/07/19 12:55 - Orders/Labs/Meds Orders: Active Orders 24 hr Category Date Time Status EKG Documentation Completion [RC] ASDIRECTED Care 05/07/19 10:32 Active Peripheral IV Care [RC] . DIRECTED Care 05/07/19 10:32 Active Sodium Chloride 0.9% [Saline Flush] Med 05/07/19 10:31 Active 10 ml FLUSH Q8HR PRN Peripheral IV Insertion Adult [OM.PC] Routine Oth 05/07/19 10:31 Ordered EKG 12 Lead [EK] Routine Ther 05/07/19 10:31 Ordered Medication Orders Sodium Chloride (Saline Flush) 10 ml FLUSH Q8HR PRN PRN Reason: keep vein open Last Admin: 05/07/19 12:32 Dose: 10 ml Admin: 05/07/19 11:02 Dose: 10 ml Labs: Laboratory Tests 05/07/19 05/07/19 05/07/19 Range/Units 10:35 10:35 10:35 WBC 6.04 (5.00-10.00) 10^3/uL RBC 4.46 (3.80-5.50) 10^6/uL Hgb 13.5 (12.0-16.0) g/dL Hct 43.1 (37.0-47.0) % MCV 96.6 H (82.0-92.0) fL MCH 30.3 (27.0-31.0) pg MCHC 31.3 L (32.0-36.0) g/dL RDW 13.0 (11.5-14.5) % Plt Count 179 (150-400) 10^3/uL MPV 9.4 (7.4-10.4) fL Immature Gran % (Auto) 0.2 (0.0-5.0) % Neut % (Auto) 78.3 H (50.0-70.0) % Lymph % (Auto) 9.8 L (20.0-40.0) % [place] % (Auto) 6.6 (2.0-8.0) % Eos % (Auto) 4.3 H (1.0-3.0) % Baso % (Auto) 0.8 (0.0-1.0) % Immature Gran # (Auto) 0.01 (0.00-0.50) 10^3/uL Neut # (Auto) 4.73 (2.50-7.00) 10^3/uL Lymph # (Auto) 0.59 L (1.00-4.00) 10^3/uL [place] # (Auto) 0.40 (0.10-0.80) 10^3/uL Eos # (Auto) 0.26 (0.10-0.30) 10^3/uL Baso # (Auto) 0.05 (0.00-0.10) 10^3/uL Sodium 143 (136-145) mmol/L Potassium 4.5 (3.3-5.3) mmol/L Chloride 105 (98-115) mmol/L Carbon Dioxide 30.0 (21.0-32.0) mmol/L Anion Gap 12.5 (5-15) mmol/L BUN 19 (6-25) mg/dL Creatinine 0.78 (0.51-1.17) mg/dL Est Cr Clr Drug Dosing 37.19 mL/min Estimated GFR (MDRD) > 60 mL/min Glucose 109 H (75 - 99) mg/dL Calcium 9.4 (8.7-10.3) mg/dL Total Bilirubin 0.5 (0.2-1.0) mg/dL AST 24 (15-37) U/L ALT 35 (12-78) U/L Alkaline Phosphatase 127 H (46-116) IU/L Troponin I < 0.04 (0.00-0.070) ng/mL B-Natriuretic Peptide 108 H (0-100) pg/mL Total Protein 6.9 (6.4-8.2) g/dL Albumin 3.25 (3.00-4.80) g/dL Lipase 67 L (73-393) U/L 05/07/19 Range/Units 13:38 WBC (5.00-10.00) 10^3/uL RBC (3.80-5.50) 10^6/uL Hgb (12.0-16.0) g/dL Hct (37.0-47.0) % MCV (82.0-92.0) fL MCH (27.0-31.0) pg MCHC (32.0-36.0) g/dL RDW (11.5-14.5) % Plt Count (150-400) 10^3/uL MPV (7.4-10.4) fL Immature Gran % (Auto) (0.0-5.0) % Neut % (Auto) (50.0-70.0) % Lymph % (Auto) (20.0-40.0) % [place] % (Auto) (2.0-8.0) % Eos % (Auto) (1.0-3.0) % Baso % (Auto) (0.0-1.0) % Immature Gran # (Auto) (0.00-0.50) 10^3/uL Neut # (Auto) (2.50-7.00) 10^3/uL Lymph # (Auto) (1.00-4.00) 10^3/uL [place] # (Auto) (0.10-0.80) 10^3/uL Eos # (Auto) (0.10-0.30) 10^3/uL Baso # (Auto) (0.00-0.10) 10^3/uL Sodium (136-145) mmol/L Potassium (3.3-5.3) mmol/L Chloride (98-115) mmol/L Carbon Dioxide (21.0-32.0) mmol/L Anion Gap (5-15) mmol/L BUN (6-25) mg/dL Creatinine (0.51-1.17) mg/dL Est Cr Clr Drug Dosing mL/min Estimated GFR (MDRD) mL/min Glucose (75 - 99) mg/dL Calcium (8.7-10.3) mg/dL Total Bilirubin (0.2-1.0) mg/dL AST (15-37) U/L ALT (12-78) U/L Alkaline Phosphatase (46-116) IU/L Troponin I < 0.04 (0.00-0.070) ng/mL B-Natriuretic Peptide (0-100) pg/mL Total Protein (6.4-8.2) g/dL Albumin (3.00-4.80) g/dL Lipase (73-393) U/L Meds: Medications Generic Name Dose Route Start Last Admin Trade Name Freq PRN Reason Stop Dose Admin Sodium Chloride 10 ml 05/07/19 10:31 05/07/19 12:32 Saline Flush FLUSH 10 ml Q8HR PRN Administration keep vein open Discontinued Medications Generic Name Dose Route Start Last Admin Trade Name Akhil PRN Reason Stop Dose Admin Aspirin 324 mg 05/07/19 10:31 05/07/19 10:36 Aspirin PO 05/07/19 10:32 324 mg ONETIME ONE Administration Furosemide 20 mg 05/07/19 12:16 05/07/19 12:31 Lasix IVPUSH 05/07/19 12:17 20 mg NOW ONE Administration - Radiology Interpretation Free Text/Narrative:: Chest x-ray shows mild perihilar congestion - Re-Assessments/Exams Free Text/Narrative Re-Assessment/Exam: 05/07/19 13:37 Discussed case in depth with Bismark Gonzalez. Requested to repeat troponin for reevaluation and discharge or admission status. 05/07/19 14:15 Repeat troponin at 4 hours was negative. Patient feeling better and would like to go home. Patient will be discharged home as per directed by [place] providers. Patient will follow-up at the [facility] in 1-2 days. Departure - Departure Time of Disposition: 14:16 Disposition: Home, Self-Care 01 Condition: Good Clinical Impression: Atypical chest pain Instructions: Nonspecific Chest Pain, [id number] Referrals: Sanjana Carvajal [employer] [Primary Care Provider] - Forms: ED Department Discharge Additional Instructions: Follow-up at [facility] in 1-2 days. Return to emergency department sooner if symptoms continue or worsen. Sepsis Event Note - Evaluation Sepsis Screening Result: No Definite Risk - Focused Exam Vital Signs: Vital Signs Temp Pulse Resp BP Pulse Ox 05/07/19 12:55 98.1 F 67 15 119/47 L 97 05/07/19 12:31 60 16 116/54 L 98 05/07/19 11:25 62 14 115/53 L 95 05/07/19 11:01 65 19 107/41 L 94 L 05/07/19 10:45 67 15 137/65 05/07/19 10:30 97.6 F 67 19 134/101 H 92 L Date Exam was Performed: 05/07/19 Time Exam was Performed: 14:17 - My Orders Last 24 Hours: My Active Orders 05/07/19 10:31 Sodium Chloride 0.9% [Saline Flush] 10 ml FLUSH Q8HR PRN Peripheral IV Insertion Adult [OM.PC] Routine EKG 12 Lead [EK] Routine 05/07/19 10:32 EKG Documentation Completion [RC] ASDIRECTED Peripheral IV Care [RC] . DIRECTED - Assessment/Plan Last 24 Hours: My Active Orders 05/07/19 10:31 Sodium Chloride 0.9% [Saline Flush] 10 ml FLUSH Q8HR PRN Peripheral IV Insertion Adult [OM.PC] Routine EKG 12 Lead [EK] Routine 05/07/19 10:32 EKG Documentation Completion [RC] ASDIRECTED Peripheral IV Care [RC] . DIRECTED Assessment:: Atypical chest pain Plan: Follow-up at [facility]
[2019-05-07 12:55] VITALS: PULSE 67
[2019-05-07 14:20] VITALS: BP 115/49
== END 2019-05-07 14:34 | disposition home or self-care (01) ==
LOC: KA.ED 10:25
DX: R07.89 Other chest pain (principal); E66.9 Obesity, unspecified; Z68.42 Body mass index [BMI] 45.0-49.9, adult; Z87.891 Personal history of nicotine dependence; Z86.73 Personal history of transient ischemic attack (TIA), and cerebral infarction without residual deficits; Z79.82 Long term (current) use of aspirin
CPT/HCPCS: 36415; 71045; 80053; 83690; 83880; 84484; 85025; 93005; 96374; 99285-25; A9270-GY; J1940

== ENCOUNTER 2022-09-05 22:07 | Emergency (ER) | payer MEDICARE, BC ==
[2022-09-05] MEDS ORDERED: Diphtheria,Pertussis(Acell),Tetanus Vaccine 0.5 ML Syringe IM ONE (22:40)
[2022-09-05] MEDS ORDERED: Acetaminophen 500 MG Tab ONE (23:23)
[2022-09-05] MEDS ORDERED: Acetaminophen 500 MG Tab PO ONE (23:31)
[2022-09-06 06:02] VITALS: BP 137/82; PULSE 83
== END 2022-09-06 08:21 | disposition home or self-care (01) ==
LOC: KA.ED 22:07
DX: S01.01XA Laceration without foreign body of scalp, initial encounter (principal); M19.90 Unspecified osteoarthritis, unspecified site; E66.9 Obesity, unspecified; Z23 Encounter for immunization; Z79.82 Long term (current) use of aspirin; Z79.899 Other long term (current) drug therapy; Z68.35 Body mass index [BMI] 35.0-35.9, adult; W18.30XA Fall on same level, unspecified, initial encounter; W22.8XXA Striking against or struck by other objects, initial encounter; Y92.002 Bathroom of unspecified non-institutional (private) residence as the place of occurrence of the external cause
CPT/HCPCS: 12001; 90471; 90715; 99282-25; 99284; A9270-GY